=== PATIENT | female | born 1955 | race Hispanic/Latino ===

== ENCOUNTER → 2025-06-26 | Outpatient (REF) | payer MEDICARE ==
[~2025-06-26] MED LIST: IOPAMIDOL 370 MG/ML 100 ML INFUS..BTL INJ ONE
[2025-06-26 14:33] LABS: EST GLOMERULAR FILTRATION RATE 89.0 ML/MIN (>=60)
== END ==
LOC: CT 13:31
PROVIDERS: ATTEND Nurse Practitioner Family
DX: R10.9 Unspecified abdominal pain (principal); R19.8 Other specified symptoms and signs involving the digestive system and abdomen
CPT/HCPCS: 36415; 74177; 82565; 84520; Q9967